=== PATIENT | male | born 1955 | race Caucasian/White ===

== ENCOUNTER 2023-10-21 14:55 | Outpatient (AMB) | payer MEDICARE, OTHER, SELFPAY ==
[2023-10-21 15:04] VITALS: BP 132/70; PULSE 82; O2SAT 95; BMI 31.5
--- NOTE | 2023-10-21 15:04 | MHC.OFFVIS ---
Intake Vital Signs 10/21/23 15:04 Height 5 ft 6 in Weight 195 lb BMI 31.5 BP 132/70 Blood Pressure Location Lt brachial Position Sitting Pulse 82 Pulse Source Pulse Oximeter Pulse Oximetry (%) 95 Oxygen Delivery Method Room Air Intake Visit Reasons: Obstructive sleep apnea Allergies Lisinopril Adverse Reaction (Severe, Uncoded 10/21/23 15:06) Cough HPI HPI Comments History of Present Illness Details 10/21/2023 the patient is here for a pulmonary follow-up visit. The patient has underlying sleep apnea. he also has a a pacemaker for his cardiac arrhythmia and recently underwent an ablation [facility]. He is doing well from the CPAP standpoint. He does use the CPAP every night. The CPAP therapy has been very affecting beneficial for him. He did bring it in we did download the data. Appears that his AHI is at 3. the patient does have a nasal mask. Does not have any significant air leakage from the mouth. Seems to be tolerating it well. His average pressure is 12 cm. Will go ahead and increase his minimum pressure up to 8. the patient does not use any respiratory inhalers. He has been on Eliquis with good results. No evidence of any epistaxis or bleeding. No recent imaging to review. Will go ahead and continue with CPAP therapy at this time. [facility] Medical History (Updated 10/21/23 @ 19:22 by Michael Mason MD) BOOKER (obstructive sleep apnea) Social History (Updated 10/21/23 @ 15:09 by SAMEER Billingsley) Patient Tobacco Use Status: Never used Tobacco Review of Systems Const Denies daytime sleepiness, Denies difficulty sleeping, Denies fatigue and Denies stops breathing during sleep Eyes Reports no additional complaints ENT Denies nasal congestion Card Reports as per HPI and Denies chest pain Resp Reports no additional complaints and Denies wheezing GI Reports no additional complaints Musc Reports no additional complaints Skin/Breast Reports unusual bruising Neuro Reports no additional complaints Endo Denies fatigue Celio/Lymph Denies lymphadenopathy Aller/Immun Denies wheezing Physical Exam Vital Signs: Last Vital Signs Pulse 82 10/21/23 15:04 BP 132/70 10/21/23 15:04 Pulse Ox 95 10/21/23 15:04 Oxygen Delivery Method Room Air 10/21/23 15:04 BMI result Body Mass Index 31.5 Const General: comfortable HEENT Head: Yes normocephalic Neck Neck: Yes supple Chest Chest palpation & inspection: normal inspection of the chest and other (PM) Resp Effort & Inspection: normal respiratory effort Auscultation: clear to auscultation bilaterally GI Palpation (GI): Soft to palpation Skin General skin exam: ecchymosis (NUSRAT due to cardiac cath, better per pt) Extrem General: Yes no clubbing, cyanosis or edema Assessment & Plan Assessment & Plan (1) BOOKER (obstructive sleep apnea): Code(s): G47.33 - Obstructive sleep apnea (adult) (pediatric) Plan continue APAP, adjusted 8-16, Ramp6, N30i mask F/U 1 yr Coding Level of Care Code Est Pt Level 3 (90003) Diagnoses BOOKER (obstructive sleep apnea) G47.33 Time Spent (min) 17
== END 2023-10-21 15:51 | disposition home or self-care (01) ==
PROVIDERS: PCP Internal Medicine; Visit Provider Hospitalist
DX: G47.33 Obstructive sleep apnea (adult) (pediatric) (principal)
CPT/HCPCS: 99213

== ENCOUNTER → 2023-10-21 14:55 | Outpatient (BNVA) | payer MEDICARE, OTHER, SELFPAY | PROVIDERS: PCP Internal Medicine; Visit Provider Hospitalist | DX: G47.33 Obstructive sleep apnea (adult) (pediatric) (principal) | CPT/HCPCS: 99212 ==

== ENCOUNTER 2024-10-15 10:36 | Outpatient (AMB) | payer MEDICARE, OTHER, SELFPAY ==
[2024-10-15 10:45] VITALS: BP 120/74; PULSE 77; O2SAT 97; BMI 33.4
--- NOTE | 2024-10-15 10:45 | A.OFFVIS_ITS ---
Vital Signs 10/15/24 10:45 Height 5 ft 6 in Weight 207 lb 3.752 oz BMI 33.4 BP 120/74 Blood Pressure Location Lt brachial Position Sitting Pulse 77 Pulse Source Pulse Oximeter Pulse Oximetry (%) 97 Oxygen Delivery Method Room Air Intake Visit Reasons: Obstructive sleep apnea Sports Team Manager Required: No Allergies Lisinopril Adverse Reaction (Severe, Uncoded 10/21/23 15:06) Cough HPI Comments Details: The patient has underlying sleep apnea. he also has a a pacemaker for his cardiac arrhythmia and recently underwent an ablation [facility]. He is doing well from the CPAP standpoint. He does use the CPAP every night. The CPAP therapy has been very affecting beneficial for him. He did bring it in we did download the data. Appears that his AHI is at 3. the patient does have a nasal mask. Does not have any significant air leakage from the mouth. Seems to be tolerating it well. His average pressure is 12 cm. Will go ahead and increase his minimum pressure up to 8. the patient does not use any respiratory inhalers. He has been on Eliquis with good results. No evidence of any epistaxis or bleeding. No recent imaging to review. Will go ahead and continue with CPAP therapy at this time. 10/15/2024 the patient is here for a pulmonary follow-up visit. Overall the patient has been doing well. He continues uses CPAP every night. CPAP therapy has been affecting beneficial. Does use it for more than 4 hours a night. Did not bring it in but he does have an AirSense 9. He has had it for many years but he still seems to be working well. He does get supplies from his [employer], [employer] At this point the patient is not looking to get any machine. He will continue to use it as prescribed. Will go ahead and reassess next year. In the meantime if he develops any difficulties with the machine he can always call we can always try to get him a replacement machine since that machine is probably about 15 years old. Otherwise the patient is without any other complaints. If he develops any issues prior to his next appointment in a year he will call for an earlier assessment. [facility] Medical History (Updated 10/21/23 @ 19:22 by Michael Mason MD) BOOKER (obstructive sleep apnea) Social History Patient Tobacco Use Status: Never used Tobacco Review of Systems Const Denies daytime sleepiness, Denies difficulty sleeping, Denies fatigue and Denies stops breathing during sleep Eyes Reports no additional complaints ENT Denies nasal congestion Card Reports as per HPI and Denies chest pain Resp Reports no additional complaints and Denies wheezing GI Reports no additional complaints Musc Reports no additional complaints Skin/Breast Reports unusual bruising Neuro Reports no additional complaints Endo Denies fatigue Celio/Lymph Denies lymphadenopathy Aller/Immun Denies wheezing Physical Exam Vital Signs: Last Vital Signs Pulse 77 10/15/24 10:45 BP 120/74 10/15/24 10:45 Pulse Ox 97 10/15/24 10:45 Oxygen Delivery Method Room Air 10/15/24 10:45 BMI result Body Mass Index 33.4 Const General: comfortable HEENT Head: Yes normocephalic Neck Neck: Yes supple Chest Chest palpation & inspection: normal inspection of the chest and other (PM) Resp Effort & Inspection: normal respiratory effort Auscultation: clear to auscultation bilaterally GI Palpation (GI): Soft to palpation Skin General skin exam: ecchymosis (NUSRAT due to cardiac cath, better per pt) Extrem General: Yes no clubbing, cyanosis or edema Assessment & Plan Assessment & Plan (1) BOOKER (obstructive sleep apnea): Code(s): G47.33 - Obstructive sleep apnea (adult) (pediatric) Category: Medical Plan continue APAP, adjusted 8-16, Ramp6, N30i mask F/U 1 yr Coding Level of Care Code Est Pt Level 3 (70028) Diagnoses BOOKER (obstructive sleep apnea) G47.33 Time Spent (min) 15
== END 2024-10-15 11:12 | disposition home or self-care (01) ==
PROVIDERS: PCP Internal Medicine; Visit Provider Hospitalist
DX: G47.33 Obstructive sleep apnea (adult) (pediatric) (principal)
CPT/HCPCS: 99213

== ENCOUNTER → 2024-10-15 10:36 | Outpatient (BNVA) | payer MEDICARE, OTHER, SELFPAY | PROVIDERS: PCP Internal Medicine; Visit Provider Hospitalist | DX: G47.33 Obstructive sleep apnea (adult) (pediatric) (principal); Z99.89 Dependence on other enabling machines and devices | CPT/HCPCS: 99212 ==

== ENCOUNTER 2025-07-20 11:58 | Outpatient (AMB) | payer MEDICARE, OTHER, SELFPAY ==
--- OUTSIDE RECORDS SUMMARY | 2025-07-20 14:52 | XMS_ITS | Clinical Summary ---
Author Organization [facility] Address [address] [place] [address] Phone Care Team Providers Care Time Clock Repairer Name Role Phone Jamaal Rayo MD Primary Care Provider + Allergies Active Allergy Reactions Criticality Noted Date Comments Grass Pollen 09/08/2023 House Dust 09/08/2023 Medications ELIQUIS 5 mg tablet Take 1 tablet by mouth 2 (two) times a day. 08/20/2023 Active atomoxetine (STRATTERA) 80 mg capsule Take 1 capsule by mouth every morning. 07/28/2023 Active atorvastatin (LIPITOR) 20 MG tablet Take 1 tablet by mouth every morning. 07/28/2023 Active BREZTRI AEROSPHERE 160-9-4.8 mcg/actuation inhaler Inhale 2 puffs into the lungs 2 (two) times a day. 08/18/2023 Active carvedilol (COREG) 6.25 MG tablet Take 6.25 mg by mouth 2 (two) times a day. 05/14/2022 Active celecoxib (CELEBREX) 200 MG capsule Take 1 capsule by mouth every morning. 07/28/2023 Active hydroCHLOROthia zide (MICROZIDE) 12.5 mg capsule Take 1 capsule by mouth every morning. 07/28/2023 Active metFORMIN (GLUMETZA) 1000 MG (MOD) 24 hr tablet Take 1 tablet by mouth 2 (two) times a day. 07/31/2023 Active telmisartan (MICARDIS) 40 MG tablet Take 1 tablet by mouth every morning. 08/26/2023 Active acetaminophen (TYLENOL) 500 MG tablet Take 500 mg by mouth every 6 (six) hours as needed for pain (specific location in comments). Active metoprolol succinate (TOPROL-XL) 50 MG 24 hr tablet Take 2 tablets (100 mg total) by mouth 2 (two) times a day. 360 tablet 3 10/08/2023 Active tamsulosin (FLOMAX) 0.4 mg Cap TAKE 1 CAPSULE BY MOUTH EVERY DAY TAKE 1ST DOSE AT BEDTIME THEN START NEXT DAY TAKING THE DOSE 1/2 HOUR AFTER LAST MEAL OF THE DAY 11/11/2023 Active Active Problems Problem Noted Date Diagnosed Date Persistent atrial fibrillation 09/08/2023 Assessment & Plan (01/27/2024 12:55 AM EDT): Denies any symptomatic episodes of atrial fibrillation. Patient does have less than an hour of atrial flutter noted on pacemaker interrogation. Will continue same medications. Assessment & Plan (09/08/2023 3:37 PM EST): We had a detailed discussion with regards to rate control versus rhythm control. In view of systolic heart failure before patient opted for rhythm control. We will schedule the patient for PVI ablation. Continue amiodarone currently. Patient counseled about blood thinners. In the meantime we will increase the dose of metoprolol to 100 mg twice daily. If there is too much time between ablation will request for cardioversion before ablation. Atrial flutter 09/08/2023 Assessment & Plan (09/08/2023 3:34 PM EST): P waves are positive in lead V1 and inferior leads. Atrial flutter seems to be atypical. We will try to ablate atrial flutter during the atrial fibrillation ablation Chronic systolic heart failure 09/08/2023 Assessment & Plan (01/27/2024 12:55 AM EDT): Ejection fraction in October 2023 improved to normal. Continue beta-blockers Assessment & Plan (09/08/2023 3:35 PM EST): Last echocardiogram showed ejection fraction to be 45 to 50%. In view of low ejection fraction we will prefer rhythm control. On amiodarone therapy 09/08/2023 Assessment & Plan (09/08/2023 3:37 PM EST): QTc interval within normal limits. We will continue amiodarone. After ablation we will think about stopping amiodarone. Social History Tobacco Use Types Packs/Day Years Used Date Smoking Tobacco: Never Assessed Education Answer Date Recorded Are you interested in more education? Not on jessica e 08/22/2023 Are you concerned about learning? Not on file 08/22/2023 No 08/22/2023 No 08/22/2023 Digital Access Answer Date Recorded No 08/22/2023 No 08/22/2023 Reliable internet access at home? Not on file 08/22/2023 Device with a working camera? Not on file Sex and Gender Information Value Date Recorded Sex Assigned at Not on file Legal Sex Male 8:48 AM EDT Gender Identity Not on file Sexual Orientation Not on file Last Filed Vital Signs Vital Sign Reading Time Taken Comments Blood Pressure 128/84 01/16/2024 11:07 AM EDT Pulse 67 01/16/2024 11:07 AM EDT Temperature - - Respiratory Rate - - Oxygen Saturation 97% 01/16/2024 11:07 AM EDT Inhaled Oxygen Concentration - - Weight 93.4 kg (206 lb) 01/16/2024 11:07 AM EDT Height 167.6 cm (5' 5.98 ) 01/16/2024 11:07 AM E DT Body Mass Index 33.27 01/16/2024 11:07 AM EDT Plan of Treatment Health Maintenance Due Date Last Done Comments Adult Td,Tdap Booster 1953 CREATININE LEVEL 1953 LIPID PANEL 1953 POTASSIUM LEVEL 1953 DEPRESSION SCREENING 1965 SMOKING Hx and SMOKELESS TOB ACCO SCREENING 1966 HEPATITIS C SCREENING 1971 PNEUMOCOCCAL VACCINES (50+ y ears) (1 of 2 - PCV) 01/24/1972 COLOGUARD 1998 COLONOSCOPY 1998 COLORECTAL CANCER SCREENING 1998 FIT TEST 1998 FOBT 1998 SIGMOIDOSCOPY 1998 VIRTUAL COLONOSCOPY 1998 ZOSTER VACCINES (1 of 2) 2003 RSV VACCINE (1 - Risk 60-74 years 1-dose series) 2013 INFLUENZA VACCINE (#1) 2025 COVID-19 VACCINE (2023-2 5 season) 2025 HEPATITIS A VACCINES Aged Out No long er eligible based on patient's age to complete this topic HIB VACCINES Aged Out No longer eligi ble based on patient's age to complete this topic MENINGOCOCCAL VACCINES (ACWY) Aged Out No longer eligible based on patient's age to complete this topic MENINGOCOCCAL VACCINES (B) Aged Out N o longer eligible based on patient's age to complete this topic Medical Devices Not on file Insurance MEDICARE PART A & B [facility] MEDICARE SUPPLEMENT MEDICARE PART A & B MEDICARE SUPPLEMENT MEDICARE PART A & B MEDICARE SUPPLEMENT Member Subscriber Plan / Payer ( fective 2018-Present) Name:Moo Lopez Relation to Subscriber:Self Name:Moo Lopez Payer ID:Not on file Type:Indemnity Address: [place] [id number] MEDICARE PART A & B Member Subscriber Plan / Payer (Ef fective 2018-Present) Name:Moo Lopez Member ID:[id number] Relation to Subscriber:Self Name:John Moo Subscriber ID:[id number] Payer ID:[id number] Group ID:Not on file Type:Medicare Address: [place] [address] MEDICARE SUPPLEMENT MEDICARE PART A & B [facility] MEDICARE SUPPLEMENT MEDICARE PART A & B [facility] MEDICARE SUPPLEMENT Care Teams Time Clock Repairer Relationship Specialty Start Date End Date Jamaal Rayo MD [address] [facility] [address] [place] [address] PCP - General Internal Medicine 08/22/23 Additional Source Comments The information contained in this document represents components of the legal health record. It is not the complete legal health record.[facility]
== END 2025-07-20 11:59 | disposition home or self-care (01) ==
LOC: HO.HMGAL 11:58
PROVIDERS: PCP Internal Medicine; Visit Provider Registered Nurse Emergency
DX: J30.89 Other allergic rhinitis (principal)
CPT/HCPCS: 95117; 95165

== ENCOUNTER 2025-08-31 11:20 | Outpatient (AMB) | payer MEDICARE, OTHER, SELFPAY ==
--- OUTSIDE RECORDS SUMMARY | 2025-08-31 13:50 | XMS_ITS | Clinical Summary ---
Author Organization [facility] Address [address] [facility] [address] [place] [address] Phone Care Team Providers Care Coiler Operator Name Role Phone Jamaal Rayo MD Primary [...] FOBT 1998 SIGMOIDOSCOPY 1998 VIRTUAL COLONOSCOPY 1998 RSV VACCINE (1 - Risk 50-74 years 1-dose series) 2003 ZOSTER VACCINES (1 of 2) 2003 INFLUENZA VACCINE (#1) 2025 COVID-19 VACCINE (2024-2 6 season) 2025 HEPATITIS A VACCINES Aged Out [...] file Insurance MEDICARE PART A & B [facility] MEDICARE SUPPLEMENT MEDICARE PART A & B MEDICARE SUPPLEMENT MEDICARE PART A & B MEDICARE SUPPLEMENT Member Subscriber Plan / Payer ( fective 2018-Present) Name:Moo Lopez Relation to Subscriber:Self Name:Moo Lopez Payer ID:Not on file Type:Indemnity Address: [place] [id number] MEDICARE PART A & B Member Subscriber Plan / Payer (Ef fective 2018-Present) Name:Moo Lopez Member ID:[id number] Relation to Subscriber:Self Name:John Moo Subscriber ID:[id number] Payer ID:[id number] Group ID:Not on file Type:Medicare Address: [employer] [address] MEDICARE SUPPLEMENT MEDICARE PART A & B [facility] MEDICARE SUPPLEMENT MEDICARE PART A & B [facility] MEDICARE SUPPLEMENT Care Teams Coiler Operator Relationship Specialty Start Date End Date Jamaal Rayo MD [address] [facility] [address] [place] [address] PCP - General Internal Medicine 08/22/23 Additional Source Comments The information contained in this document represents components of the legal health record. It is not the complete legal health record.[facility]
== END 2025-08-31 11:21 | disposition home or self-care (01) ==
LOC: HO.HMGAL 11:20
PROVIDERS: PCP Internal Medicine; Visit Provider Registered Nurse Emergency
DX: J30.89 Other allergic rhinitis (principal)
CPT/HCPCS: 95117; 95165

== ENCOUNTER 2025-10-03 11:16 | Outpatient (AMB) | payer MEDICARE, OTHER, SELFPAY | END 2025-10-03 11:17 | disposition home or self-care (01) | LOC: HO.HMGAL 11:16 | PROVIDERS: PCP Internal Medicine; Visit Provider Registered Nurse Emergency | DX: J30.89 Other allergic rhinitis (principal) | CPT/HCPCS: 95117; 95165 ==